=== PATIENT | male | born 2000 | race Hispanic/Latino ===

== ENCOUNTER 2019-12-13 | Emergency (ER) | payer SELFPAY ==
[2019-12-13] MEDS ORDERED: AMOXICILLIN500 M2 PO (13:29)
[2019-12-13] MEDS ORDERED: TAM75CAP PO (13:29)
== END 2019-12-13 14:04 | disposition home or self-care (01) | DRG 195 ==
DX: J10.1 Influenza due to other identified influenza virus with other respiratory manifestations (principal)